=== PATIENT | female | born 1955 | race Caucasian/White ===

== ENCOUNTER 2019-01-15 16:29 | Emergency (ER) | payer BC ==
[~2019-01-15] VITALS: Ht 172.7 cm; Wt 131.8 kg
[2019-01-15] MEDS ORDERED: ondansetron/PF 4mg/2ml inj IV ONE (17:15)
[2019-01-15 17:25] LABS: BASOPHILS % (AUTO) 0.6 % (0-1); EOSINOPHILS # (AUTO) 0.1 X10'3 (0-0.9); EOSINOPHILS % (AUTO) 1.4 % (0-6); HEMATOCRIT 37.7 % (35.0-45.0); HEMOGLOBIN 12.6 g/dl (12.0-16.0); LYMPHOCYTES # (AUTO) 1.7 X10'3 (1.1-4.8); LYMPHOCYTES % (AUTO) 19.5 % (21-51); MEAN CORPUSCULAR HEMOGLOBIN 30.4 PG (27.0-31.0); MEAN CORPUSCULAR HGB CONC 33.4 g/dL (33.0-36.5); MEAN CORPUSCULAR VOLUME 91.2 FL (78-98); MONOCYTES # (AUTO) 0.7 X10'3 (0-0.9); MONOCYTES % (AUTO) 8.2 % (2-12); NEUTROPHILS # (AUTO) 6.2 X10'3 (1.8-7.7); NEUTROPHILS % (AUTO) 70.3 % (42-75); PLATELET COUNT 359 X10'3 (140-440); RED BLOOD COUNT 4.13 X10'6 (4.20-5.60); RED CELL DISTRIBUTION WIDTH 14.7 % (11.5-14.5); WHITE BLOOD COUNT 8.8 X10'3 (4.5-11.0)
[2019-01-15 17:40] LABS: ALANINE AMINOTRANSFERASE 24 U/L (12-78); ALBUMIN 3.7 G/DL (3.4-5.0); ALBUMIN/GLOBULIN RATIO 1.1 (1.1-1.5); ALKALINE PHOSPHATASE 70 IU/L (46-116); ANION GAP 10 (8-16); ASPARTATE AMINO TRANSFERASE 15 U/L (10-37); BILIRUBIN,TOTAL 0.9 MG/DL (0.1-1.0); BLOOD UREA NITROGEN 30 MG/DL (7-18); BUN/CREATININE RATIO 30.6 (6.6-38.0); CALCIUM 9.7 MG/DL (8.5-10.1); CHLORIDE 106 MMOL/L (99-107); CREATININE 0.98 MG/DL (0.40-0.90); ETHANOL < 0.010 GM/DL (0.0-0.010); GLUCOSE 131 MG/DL (70-104); POTASSIUM 4.4 MMOL/L (3.5-5.1); SODIUM 142 MMOL/L (135-145); TOTAL CARBON DIOXIDE 26.1 MMOL/L (24-32); eGFR 58 ML/MIN
[2019-01-15] MEDS ORDERED: ondansetron 4mg rapidly disintigrating tab PO ONE (17:45)
--- NOTE | 2019-01-15 18:09 | NUR ---
Telepsych called. Pt placed in queue.
[2019-01-15 18:51] LABS: URINE HCG NEGATIVE (NEG)
[2019-01-15 19:04] LABS: URINE AMPHETAMINE SCREEN NEGATIVE (Neg); URINE BARBITUATE SCREEN NEGATIVE (Neg); URINE BENZODIAZEPINES SCREEN NEGATIVE (Neg); URINE CANNABINOID SCREEN NEGATIVE (Neg); URINE COCAINE SCREEN NEGATIVE (Neg); URINE METHADONE SCREEN NEGATIVE (Neg); URINE OPIATE SCREEN NEGATIVE (Neg); URINE PHENCYCLIDINE SCREEN NEGATIVE (Neg)
--- NOTE | 2019-01-15 19:45 | NUR ---
Pt transferred from [facility] to ED11. She stated an inability to transfer from to [facility] without assist, but with encouragement was able to do so on her own. Pt required assistance to get legs on gurney. Assisted pt to swing legs onto gurney after she raised them straight out. Upon placement pt began screaming and crying. When asked for clarification about why she was in ED, to ascertain if medical rather than mental health, pt refused to answer, crying even louder. Pt's indicated she was here for mental health evaluation "and whatever." Based on 's response of walking out of pt room and ignoring her, it appears pt's behaviour may be a normal response. Pt was able to calm and console herself without further assistance/interaction from staff.
--- NOTE | 2019-01-15 20:42 | NUR ---
pt is calm, lying on the gurney with carson davis covering. awaiting tele psych consult.
--- NOTE | 2019-01-15 21:31 | NUR ---
[facility] Psychiatrist , Dr. Dexter, calling for report, he will call pt now. Pt's is at bedside. pt is cooperative with care and currently calm and in the gurney.
[2019-01-15] MEDS ORDERED: metoclopramide 10mg tablet PO ONE (22:40)
--- NOTE | 2019-01-15 22:41 | NUR ---
pt moved from er bed 11 to er bed 13. report to abe dyer rn.
--- NOTE | 2019-01-15 22:47 | NUR ---
PT MOVED FROM ED BED 11 TO ED BED 14 FOR CLOSER OBSERVATION, PTS AT BEDSIDE, HE WAS INFORMED SHE WILL BE STAYING OVERNIGHT AND I EDUCATED HIM ON OUR VISITORS POLICY. HE WILL BE LEAVING SHORTLY. PT GIVEN MEAL AT BEDSIDE ALONG WITH MEDICATIONS.
--- NOTE | 2019-01-15 23:15 | NUR ---
PT APPEARS TO BE SLEEPING.
[2019-01-15] MEDS ORDERED: BENA40TA72 PO (23:48)
[2019-01-15] MEDS ORDERED: METF-438 PO (23:48)
[2019-01-15] MEDS ORDERED: LANTUS SQ (23:48)
--- NOTE | 2019-01-15 23:48 | NUR ---
ATTEMPTED TO COMPLETE MED REC, UNABLE TO COMPLETE FULLY DUE TO PATIENT SLEEPING.
--- NOTE | 2019-01-15 23:53 | NUR ---
ASSESSED PATIENT, SHE IS EASILY ARROUSABLE AND SAYS SHE FEELS COMFORTABLE. PT SAYS SHE USUALLY TAKES INSULIN DAILY AT NIGHT BUT HASN'T HAD IT IN A WHILE, PT'S LAB REVIEWED BGL WNL.
--- NOTE | 2019-01-16 02:05 | NUR ---
PT LAYING ON BACK, APPEARS IN NO ACUTE DISTRESS.
--- NOTE | 2019-01-16 04:16 | NUR ---
PT WOKE UP, ASKING TO BE MOVED, PT ABLE TO MOVE ON HER OWN AND WAS ENCOURAGE TO USE HER OWN POWER TO MOVE HERSELF OVER ON THE BED. PATIENT SUCCESSFUL.
[2019-01-16 09:45] LABS: CLARITY,URINE CLOUDY (Clear); COLOR,URINE YELLOW (Yellow); GLUCOSE, URINE NEGATIVE (Neg); KETONES,URINE 15 mg/dl (Neg); LEUKOCYTE ESTERASE ,URINE LARGE (Neg); NITRITES, URINE NEGATIVE (Neg); OCCULT BLOOD,URINE TRACE-INTACT (Neg); PH,URINE 6.5 (4.8-8.0); PROTEIN,URINE TRACE mg/dl (Neg); UROBILINOGEN,URINE 0.2 E.U/dL (0.2-1.0)
[2019-01-16 09:46] LABS: UA COLLECTION TYPE VOIDED
[2019-01-16 09:58] LABS: WBC,URINE TNTC /HPF (0-4)
[2019-01-16 09:59] LABS: BACTERIA,URINE 4+ /HPF (Neg); WBC CLUMPS,URINE FEW /HPF (NEGATIVE)
--- NOTE | 2019-01-16 10:08 | NUR ---
Spoke with patients and All and infromed him about Pt. dispostion. All stated to call Yulisa to reach him if patients dispostion is changed .
[2019-01-16 10:24] LABS: RBC,URINE 0-2 /HPF (0-2); SQUAMOUS EPITHELIAL CELL,UR MODERATE /LPF (FEW)
--- NOTE | 2019-01-16 11:34 | NUR ---
Call to Pt. he was made aware of the that patient has impending D/C
[2019-01-16] MEDS ORDERED: acetaminophen 325mg tablet PO ONE (12:55)
[2019-01-16] MEDS ORDERED: ibuprofen tablet 400 MG TABLET PO ONE (12:55)
[2019-01-16] MEDS ORDERED: ondansetron 4mg rapidly disintigrating tab PO ONE (12:55)
[2019-01-16 14:51] VITALS: BP 116/40
== END 2019-01-16 14:55 | disposition home or self-care (01) ==
LOC: ER 16:29
DX: M25.561 Pain in right knee (principal); M25.562 Pain in left knee; R45.851 Suicidal ideations; Z88.8 Allergy status to other drugs, medicaments and biological substances; Z79.899 Other long term (current) drug therapy
CPT/HCPCS: 36415; 80053; 80305; 80320; 81001; 81025; 82948; 85025; 87077; 87088; 87186; 99285; J8597